=== PATIENT | male | born 2000 | race African-American/Black ===

== ENCOUNTER 2020-06-18 10:52 | Emergency (ER) | payer OTHER ==
--- NOTE | 2020-06-18 11:22 | NUR ---
Opening note: Pt complaining of swollen red tonsils with white patches. Pt states that was tested for strep and mono two weeks ago and given amoxicillin as treatment. Meds finished two days ago and tonsils became swollen this AM. Dr. Manzano at bedside to assess pt. Pt speaking in full sentences, breathing even and unlabored. Pt managing own secretions. Placed on continious BP and pulse ox. NADN.
[2020-06-18] MEDS ORDERED: SODIUM CHLORIDE FLUSH 10ML SYR IVF ONE (11:30)
[2020-06-18 11:48] LABS: BASOPHILS % (AUTO) 0 % (0-1); EOSINOPHILS % (AUTO) 1 % (1-7); LYMPHOCYTES % (AUTO) 16 % (22-44); MEAN CORPUSCULAR HGB CONC 33.8 g/dL (33.2-36.2); MEAN PLATELET VOLUME 8.9 fL (7.4-10.4); MONOCYTES % (AUTO) 10 % (2-9); NEUTROPHILS % (AUTO) 73 % (42-75); PLATELET COUNT 221 x10^3/uL (130-400); RED BLOOD COUNT 5.53 x10^6/uL (4.38-5.82); RED CELL DISTRIBUTION WIDTH 14.4 % (9.4-14.8)
[2020-06-18 11:52] LABS: MD NO
[2020-06-18 11:59] LABS: ALBUMIN 4.3 g/dL (3.4-5.0); ANION GAP 9 mmol/L (5-15); CALCIUM 9.7 mg/dL (8.5-10.1); CHLORIDE 108 mmol/L (98-107); CREATININE 1.25 mg/dL (0.7-1.3)
--- NOTE | 2020-06-18 12:07 | NUR ---
Lito at bedside to take pt to CT.
--- NOTE | 2020-06-18 12:24 | NUR ---
Pt back from CT and placed on continious BP and pulse ox. Pt rates pain as a 0/10. Pt positioned for comfort. No other complaints at this time.
[2020-06-18] MEDS ORDERED: OMNIPAQUE 350 MG/ML, 100ML BOTTLE ONE (12:25)
--- NOTE | 2020-06-18 13:20 | NUR ---
BREAK RN FOR PRIMARY RN AMARJIT. RECEIVED REPORT, CARE ASSUMED FOR BREAK. PT RESTING COMFORTABLY. DENIES NEED TO USE RESTROOM. VSS. PULSE OX 98% RA. AWAITING RECHECK FROM ERP. CALL LIGHT IN REACH. FALL PRECUATIONS IN PLACE.
--- NOTE | 2020-06-18 13:48 | NUR ---
REPORT AND TRANSFER OF CARE BACK TO PRIMARY AMARJIT AT THIS TIME.
[2020-06-18 14:21] VITALS: BP 121/66
--- NOTE | 2020-06-18 14:21 | NUR ---
Pt resting in bed, NADN, denies needs.
== END 2020-06-18 14:41 | disposition home or self-care (01) ==
LOC: ED 13:26
DX: J35.01 Chronic tonsillitis (principal); R94.31 Abnormal electrocardiogram [ECG] [EKG]; F17.290 Nicotine dependence, other tobacco product, uncomplicated
CPT/HCPCS: 36415; 70491; 80048; 82040; 85025; 86308; 87081; 87880; 93005; 99285; Q9967